=== PATIENT | male | born 1970 | race Two or more races ===

== ENCOUNTER 2018-03-03 15:02 | Inpatient (IN) | payer MEDICARE, MEDICAID ==
[~2018-03-03] VITALS: Ht 175.3 cm; Wt 74.4 kg
[2018-03-03 16:22] LABS: BASOPHILS % 1.3 % (0.0-2.0); EOSINOPHILS % 7.2 % (0.0-5.0); HEMATOCRIT. 40.1 % (42.0-52.0); HEMOGLOBIN. 13.4 g/dL (14.0-18.0); LYMPHOCYTES % 10.8 % (20.0-50.0); MEAN CORPUSCULAR HEMOGLOBIN 30.8 pg (28.0-32.0); MEAN CORPUSCULAR VOLUME 92.1 fL (80.0-94.0); MEAN PLATELET VOLUME 7.3 fl (7.4-10.4); MONOCYTES % 9.8 % (2.0-8.0); NEUTROPHILS % 70.9 % (40.0-76.0); PLATELET 467 x1000/uL (130-400); RED BLOOD CELL COUNT 4.35 mill/uL (4.7-6.1); RED CELL DISTRIBUTION WIDTH 13.4 % (11.6-14.6)
[2018-03-03 16:25] LABS: CHLORIDE 105 mEq/L (98-107)
[2018-03-03] MEDS ORDERED: HYDROCODONE/APAP 7.5/325MG 1 TAB TABLET PO ONE (19:30)
[2018-03-03] MEDS ORDERED: GUAIFENESIN 200MG/10ML SUGAR FREE UDC PO PRN (20:00)
[2018-03-03] MEDS ORDERED: ACETAMINOPHEN 650MG/20.3ML UDC GT PRN (20:00)
[2018-03-03] MEDS ORDERED: MAGNESIUM/ALUMINUM HYDROXIDE/SIMETHICONE 30ML UDC PO PRN (20:00)
[2018-03-03] MEDS ORDERED: ACETAMINOPHEN 650MG SUPP PR PRN (20:00)
[2018-03-03] MEDS ORDERED: HYDROCODONE/ACETAMINOPHEN 5/325MG TABLET PO PRN (20:00)
[2018-03-03] MEDS ORDERED: CLONIDINE 0.1MG TABLET PO PRN (20:00)
[2018-03-03] MEDS ORDERED: DIPHENHYDRAMINE 50MG/ML VIAL IV PRN (20:00)
[2018-03-03] MEDS: FUROSEMIDE 40MG/4ML VIAL IV SCH ×2 (20:00→22:56)
[2018-03-03] MEDS ORDERED: IPRATROPIUM/ALBUTEROL 0.5-3(2.5)MG/3ML NEB INH PRN (20:00)
[2018-03-03] MEDS ORDERED: DOCUSATE SODIUM 100MG CAPSULE PO PRN (20:00)
[2018-03-03] MEDS ORDERED: ACETAMINOPHEN 325MG TABLET PO PRN (20:00)
[2018-03-03] MEDS ORDERED: NA PHOS,M-B/NA PHOS,DI-BA ENEMA 118ML PR PRN (20:00)
[2018-03-03] MEDS ORDERED: ONDANSETRON HCL 4MG/2ML INJ IV PRN (20:00)
[2018-03-03 21:30] VITALS: BP 114/77
[2018-03-03] MEDS: HYDROXYCHLOROQUINE SULFATE 200MG TABLET PO SCH (22:55)
[2018-03-03] MEDS: PREDNISONE 20MG TABLET PO SCH (22:55)
[2018-03-03] MEDS: GABAPENTIN 100MG CAPSULE PO SCH (22:55)
[2018-03-03] MEDS: SODIUM CHLORIDE 0.9% INJ 3ML FLUSH IVF SCH (22:56)
[2018-03-03] MEDS: HYDROCODONE/ACETAMINOPHEN 10/325MG TABLET PO PRN (22:56)
[2018-03-04] VITALS (7 sets, daily range): BP systolic 99–114; BP diastolic 61–82
[2018-03-04 00:28] LABS: CREATINE KINASE 71 IU/L (39-308)
[2018-03-04 00:29] LABS: CREATINE KINASE MB FRACTION < 1.0 ng/mL (0.5-3.6)
[2018-03-04] MEDS ORDERED: TRAM50TA3 PO (00:35)
[2018-03-04] MEDS ORDERED: GABA-529 MT (00:35)
[2018-03-04] MEDS ORDERED: DOCU100T MT (00:35)
[2018-03-04] MEDS ORDERED: P20 PO (01:17)
[2018-03-04] MEDS ORDERED: HYDR200T80 MT (01:18)
[2018-03-04] MEDS ORDERED: OXYC-662 MT (01:19)
[2018-03-04 01:24] LABS: *AMPHETAMINES SCREEN URINE NEGATIVE (NEGATIVE); *BARBITURATES SCREEN URINE NEGATIVE (NEGATIVE); *COCAINE SCREEN URINE NEGATIVE (NEGATIVE); CLARITY URINE CLEAR (CLEAR); COLOR URINE YELLOW (YELLOW); KETONES URINE 1+ (NEGATIVE); LEUKOCYTE ESTERASE URINE NEGATIVE (NEGATIVE); NITRITE URINE NEGATIVE (NEGATIVE); OCCULT BLOOD URINE NEGATIVE (NEGATIVE); PH URINE 5.5 (4.5-8.0); PROTEIN URINE NEGATIVE (NEGATIVE); SPECIFIC GRAVITY URINE 1.037 (1.005-1.030)
[2018-03-04 01:25] LABS: CANNABINOID URINE SCREEN PRESUMTIVE POSITIVE (NEGATIVE); METHADONE URINE SCREEN NEGATIVE (NEGATIVE); OPIATES URINE SCREEN PRESUMTIVE POSITIVE (NEGATIVE); PHENCYCLIDINE URINE SCREEN NEGATIVE (NEGATIVE)
[2018-03-04 01:28] LABS: *BENZODIAZEPINES SCREEN URINE NEGATIVE (NEGATIVE)
[2018-03-04] MEDS: GABAPENTIN 100MG CAPSULE PO SCH ×3 (05:22→21:09)
[2018-03-04] MEDS: SODIUM CHLORIDE 0.9% INJ 3ML FLUSH IVF SCH ×3 (05:22→21:09)
[2018-03-04 07:07] LABS: BASOPHILS % 1.1 % (0.0-2.0); EOSINOPHILS % 0.4 % (0.0-5.0); HEMATOCRIT. 38.2 % (42.0-52.0); LYMPHOCYTES % 8.8 % (20.0-50.0); MEAN CORPUSCULAR HEMOGLOBIN 31.3 pg (28.0-32.0); MEAN CORPUSCULAR VOLUME 91.7 fL (80.0-94.0); MEAN PLATELET VOLUME 7.7 fl (7.4-10.4); MONOCYTES % 3.3 % (2.0-8.0); NEUTROPHILS % 86.4 % (40.0-76.0); PLATELET 490 x1000/uL (130-400); RED BLOOD CELL COUNT 4.17 mill/uL (4.7-6.1)
[2018-03-04 07:16] LABS: CHLORIDE 105 mEq/L (98-107)
[2018-03-04 07:36] LABS: LDL CHOLESTEROL 64 mg/dL (5-100)
[2018-03-04 07:37] LABS: CREATINE KINASE 70 IU/L (39-308); HDL CHOLESTEROL 50 mg/dL (40-59)
[2018-03-04 07:41] LABS: CREATINE KINASE MB FRACTION < 1.0 ng/mL (0.5-3.6)
[2018-03-04] MEDS: PREDNISONE 20MG TABLET PO SCH ×2 (08:59→16:37)
[2018-03-04] MEDS: HYDROXYCHLOROQUINE SULFATE 200MG TABLET PO SCH ×2 (09:00→16:37)
[2018-03-04] MEDS: FUROSEMIDE 40MG/4ML VIAL IV SCH (09:00)
[2018-03-04] MEDS: HYDROCODONE/ACETAMINOPHEN 10/325MG TABLET PO PRN ×2 (11:00→23:15)
[2018-03-04] MEDS: IPRATROPIUM/ALBUTEROL 0.5-3(2.5)MG/3ML NEB INH SCH ×2 (15:12→20:15)
[2018-03-04 16:49] LABS: CREATINE KINASE 69 IU/L (39-308)
[2018-03-04 16:50] LABS: CREATINE KINASE MB FRACTION < 1.0 ng/mL (0.5-3.6)
[2018-03-04 16:53] LABS: T4 FREE 0.9 ng/dL (0.76-1.46)
[2018-03-04] MEDS ORDERED: IOHEXOL-350 100 ML BOTTLE ONE (17:39)
[2018-03-05 00:16] VITALS: BP 108/77
[2018-03-05] MEDS: IPRATROPIUM/ALBUTEROL 0.5-3(2.5)MG/3ML NEB INH SCH ×2 (00:20→07:44)
[2018-03-05 04:00] VITALS: BP 119/72
[2018-03-05] MEDS: GABAPENTIN 100MG CAPSULE PO SCH (05:21)
[2018-03-05] MEDS: SODIUM CHLORIDE 0.9% INJ 3ML FLUSH IVF SCH (05:22)
[2018-03-05 08:00] VITALS: BP 117/70
[2018-03-05] MEDS: HYDROXYCHLOROQUINE SULFATE 200MG TABLET PO SCH (08:35)
[2018-03-05] MEDS: PREDNISONE 20MG TABLET PO SCH (08:35)
[2018-03-05] MEDS: FUROSEMIDE 40MG/4ML VIAL IV SCH (08:35)
[2018-03-05 09:04] VITALS: BP 119/72
[2018-03-05] MEDS: HYDROCODONE/ACETAMINOPHEN 10/325MG TABLET PO PRN (09:04)
== END 2018-03-05 13:10 | disposition left against medical advice (07) | DRG 197 ==
LOC: ER 15:02 → 7WST 19:23 → EDBEDREQ 19:25 → ENRESERV 19:58
PROVIDERS: ADMIT Family Medicine; ATTEND Family Medicine
DX: D86.3 Sarcoidosis of skin (principal); E44.1 Mild protein-calorie malnutrition; J90 Pleural effusion, not elsewhere classified; R07.89 Other chest pain; F12.90 Cannabis use, unspecified, uncomplicated; Z91.14 Patient's other noncompliance with medication regimen; Z79.899 Other long term (current) drug therapy; Z68.24 Body mass index [BMI] 24.0-24.9, adult
CPT/HCPCS: 36415; 71045; 71275; 80061; 80305; 82550; 82553; 83036; 83880; 84439; 84443; 84484; 85379; 93005; 93306; 93970; 94640; 99285; J1940; J7512; J7620; Q9967